=== PATIENT | male | born 1945 | race Caucasian/White ===

== ENCOUNTER 2016-10-18 10:19 | Emergency (ER) | payer OTHER, BC ==
[~2016-10-18] VITALS: Ht 175.3 cm; Wt 121.8 kg
[~2016-10-18 10:19] MED LIST: ALBUTEROL SULF8.5 GM IH; ASPIRIN325 MG PO; ATORVASTATIN CA20 MG PO; CARBAMAZEPINE100 MG PO; CARVEDILOL12.5 MG PO; GLIMEPIRIDE1 MG PO; GLIMEPIRIDE2 MG PO; HUMULIN N100 UNITS/ SC; HUMULIN R100 UNITS/ SC; LEVOTHYROXINE125 MCG PO; LO-DOSE ASPIRIN81 M1 PO; LOSARTAN-HCTZ1 EAC1 PO; METFORMIN HCL1000 MG PO; NOVOLOG PE100 UNITS/ SC; OMEPRAZOLE20 MG PO; TAMSULOSIN HCL0.4 MG PO
[2016-10-18 10:40] LABS: POINT-OF-CARE METER ID UU14100415
[2016-10-18 10:53] LABS: BASOPHIL COUNT 0.1 K/uL (0-0.1); EOSINOPHIL (%) 4.4 % (0-5); EOSINOPHIL COUNT 0.4 K/uL (0-0.3); HEMATOCRIT 42.2 % (38.0-50.0); IMMATURE GRANULOCYTE (%) 0.2 % (0.0-0.7); IMMATURE GRANULOCYTE COUNT 0.2 K/uL; LYMPHOCYTE COUNT 2.3 K/uL (1.0-2.8); MCH 28.9 PG (29.0-34.0); MCHC 33.9 G/DL (30.0-36.0); MCV 85.3 FL (86-99); MEAN PLAT.VOLUME 11.9 uM^3 (9.0-12.4); MONOCYTE (%) 8.7 % (3-12); MONOCYTE COUNT 0.9 K/uL (0-0.8); NEUTROPHIL (%) 62.8 % (45-76); NEUTROPHIL COUNT 6.1 K/uL (1.8-6.4); PLATELET COUNT 243 K/uL (156-360); RBC DIS.WIDTH-CV 13.9 % (11.8-14.6); RBC DIS.WIDTH-SD 42.9 % (39-53); RED BLOOD COUNT 4.95 M/uL (4.00-5.50); WHITE BLOOD COUNT 9.8 K/uL (4.1-10.2)
[2016-10-18 11:11] LABS: POINT-OF-CARE METER ID UU14100415
[2016-10-18 12:14] LABS: CHLORIDE 106 mEq/L (99-109); POTASSIUM 4.4 mEq/L (3.7-5.4); SODIUM 142 mEq/L (136-147)
[2016-10-18 12:15] LABS: GLUCOSE 125 mg/dL (70-99)
[2016-10-18 12:17] LABS: ANION GAP 10 MEQ/L (2-14)
[2016-10-18 12:19] LABS: GFR ESTIMATE (CALCULATED) > 59 mL/min/
[2016-10-18 12:20] LABS: UREA NITROGEN (BUN) 21 mg/dL (9-23)
[2016-10-18 12:57] LABS: POINT-OF-CARE METER ID UU14100415
[2016-10-18 13:57] LABS: POINT-OF-CARE METER ID UU13113702
[2016-10-18 14:19] VITALS: BP 175/98
== END 2016-10-18 14:34 | disposition home or self-care (01) ==
LOC: EME → EDBD 10:19 → EME 10:19
PROVIDERS: Emergency Medicine
DX: E11.649 Type 2 diabetes mellitus with hypoglycemia without coma (principal); E78.5 Hyperlipidemia, unspecified; I10 Essential (primary) hypertension; E03.9 Hypothyroidism, unspecified; Z79.4 Long term (current) use of insulin; Z88.2 Allergy status to sulfonamides; Z88.6 Allergy status to analgesic agent
CPT/HCPCS: 80048; 81003; 82948; 85025; 93005; 99281; 99285

== ENCOUNTER 2018-04-03 00:05 | Inpatient (IN) | payer OTHER, MEDICARE ==
[~2018-04-03] VITALS: Ht 177.8 cm; Wt 117.0 kg
[2018-04-03 00:40] LABS: HEMATOCRIT 39.4 % (38.0-50.0); HEMOGLOBIN 13.6 G/DL (12.5-16.6); MCH 30.1 PG (29.0-34.0); MCHC 34.5 G/DL (30.0-36.0); MCV 87.2 FL (86-99); PLATELET COUNT 180 K/uL (156-360); RBC DIS.WIDTH-CV 13.3 % (11.8-14.6); RBC DIS.WIDTH-SD 42.4 % (39-53); RED BLOOD COUNT 4.52 M/uL (4.00-5.50); WHITE BLOOD COUNT 7.9 K/uL (4.1-10.2)
[2018-04-03 00:46] LABS: CHLORIDE 108 mEq/L (99-109); POTASSIUM 3.3 mEq/L (3.7-5.4); SODIUM 144 mEq/L (136-147)
[2018-04-03 00:48] LABS: GLUCOSE 77 mg/dL (70-99)
[2018-04-03 00:52] LABS: CREATININE 1.6 mg/dL (0.6-1.3); GFR ESTIMATE (CALCULATED) 45 mL/min/ (58.99-99999)
[2018-04-03 00:53] LABS: UREA NITROGEN (BUN) 28 mg/dL (9-23)
[2018-04-03 00:59] LABS: TROP-I INTERPRETATION NEGATIVE; TROPONIN-I 0.01 ng/mL (0.0-0.30)
[2018-04-03 01:26] LABS: ALBUMIN 3.7 g/dL (3.2-4.8)
[2018-04-03 01:29] LABS: TOTAL PROTEIN 7.2 g/dL (6.4-8.3)
[2018-04-03 01:31] LABS: TOTAL BILIRUBIN 1.5 mg/dL (0.0-1.0)
[2018-04-03 01:32] LABS: ALKALINE PHOSPHATASE 86 IU/L (3-129)
[2018-04-03 01:34] LABS: AST (GOT) 16 IU/L (2-34); DIRECT BILIRUBIN 0.6 mg/dL (0.0-0.3)
[2018-04-03 01:35] LABS: ALT (GPT) 15 IU/L (3-49); LIPASE 14 U/L (1.0-51.0)
[2018-04-03 03:05] LABS: APPEARANCE CLEAR ((CLEAR)); BILIRUBIN NEGATIVE; BLOOD SMALL; COLOR YELLOW ((YELLOW)); GLUCOSE (STRIP) 50; KETONES NEGATIVE; LEUKOCYTES MODERATE; NITRITE NEGATIVE; PROTEIN (STRIP) 30; SPECIFIC GRAVITY 1.023 (1.000-1.030)
[2018-04-03 03:20] LABS: BACTERIA NONE SEEN /HPF; EPITHELIAL CELLS RARE /HPF; MUCUS TRACE /LPF; RED BLOOD CELLS 0-5 /HPF (0-5); UCUL ADDED? YES
[2018-04-03 07:55] VITALS: BP 194/88
[2018-04-03 08:31] LABS: HEMOGLOBIN 14.6 G/DL (12.5-16.6); MCH 29.9 PG (29.0-34.0); MCHC 33.2 G/DL (30.0-36.0); PLATELET COUNT 154 K/uL (156-360); RBC DIS.WIDTH-CV 13.2 % (11.8-14.6); RBC DIS.WIDTH-SD 43.7 % (39-53); RED BLOOD COUNT 4.89 M/uL (4.00-5.50); WHITE BLOOD COUNT 11.3 K/uL (4.1-10.2)
[2018-04-03 08:35] LABS: ALBUMIN 3.8 G/DL (3.2-4.8); CHLORIDE 102 MEQ/L (99-109); POTASSIUM 3.5 MEQ/L (3.7-5.4); SODIUM 141 MEQ/L (136-147); TOTAL BILIRUBIN 1.5 MG/DL (0.0-1.0)
[2018-04-03 08:41] LABS: ALKALINE PHOSPHATASE 81 IU/L (3-129); ALT (GPT) 18 IU/L (3-49); AST (GOT) 23 IU/L (2-34); CREATININE 1.2 MG/DL (0.6-1.3); GFR ESTIMATE (CALCULATED) > 59 mL/min/ (58.99-99999); TOTAL PROTEIN 7.2 G/DL (6.4-8.3); UREA NITROGEN (BUN) 25 mg/dL (9-23)
[2018-04-03 08:45] LABS: TROP-I INTERPRETATION NEGATIVE; TROPONIN-I 0.01 ng/mL (0.0-0.30)
[2018-04-03 08:51] LABS: GLUCOSE 98 mg/dL (70-99)
[2018-04-03] MEDS ORDERED: METFORMIN HCL500 M1 PO (08:52)
[2018-04-03] MEDS ORDERED: LOSARTAN-HCTZ1 EAC1 PO (08:52)
[2018-04-03 11:40] VITALS: BP 162/77
[2018-04-03 14:19] LABS: TROP-I INTERPRETATION NEGATIVE; TROPONIN-I 0.02 ng/mL (0.0-0.30)
[2018-04-03 16:14] VITALS: BP 158/72
[2018-04-03 19:20] VITALS: BP 170/79
[2018-04-03 23:52] VITALS: BP 179/74
[2018-04-04 03:35] VITALS: BP 131/61
[2018-04-04 05:55] LABS: HEMATOCRIT 39.5 % (38.0-50.0); HEMOGLOBIN 13.2 G/DL (12.5-16.6); MCH 29.9 PG (29.0-34.0); MCHC 33.4 G/DL (30.0-36.0); MCV 89.4 FL (86-99); PLATELET COUNT 157 K/uL (156-360); RBC DIS.WIDTH-CV 13.6 % (11.8-14.6); RBC DIS.WIDTH-SD 44.6 % (39-53); RED BLOOD COUNT 4.42 M/uL (4.00-5.50); WHITE BLOOD COUNT 11.2 K/uL (4.1-10.2)
[2018-04-04 06:39] LABS: CHLORIDE 101 MEQ/L (99-109); CREATININE 1.2 MG/DL (0.6-1.3); GFR ESTIMATE (CALCULATED) > 59 mL/min/ (58.99-99999); SODIUM 138 MEQ/L (136-147); UREA NITROGEN (BUN) 19 mg/dL (9-23)
[2018-04-04 06:44] LABS: GLUCOSE 313 mg/dL (70-99)
[2018-04-04 06:45] LABS: POTASSIUM 4.3 MEQ/L (3.7-5.4)
[2018-04-04 07:14] VITALS: BP 169/55
[2018-04-04 16:37] VITALS: BP 175/69
[2018-04-05 00:13] VITALS: BP 157/71
[2018-04-05 05:35] LABS: HEMATOCRIT 37.5 % (38.0-50.0); HEMOGLOBIN 12.7 G/DL (12.5-16.6); MCH 29.9 PG (29.0-34.0); MCHC 33.9 G/DL (30.0-36.0); MCV 88.2 FL (86-99); PLATELET COUNT 153 K/uL (156-360); RBC DIS.WIDTH-CV 13.3 % (11.8-14.6); RBC DIS.WIDTH-SD 43.7 % (39-53); RED BLOOD COUNT 4.25 M/uL (4.00-5.50); WHITE BLOOD COUNT 10.5 K/uL (4.1-10.2)
[2018-04-05 06:09] LABS: ALKALINE PHOSPHATASE 70 IU/L (3-129); ALT (GPT) 12 IU/L (3-49); AST (GOT) 13 IU/L (2-34); CHLORIDE 100 MEQ/L (99-109); CREATININE 1.2 MG/DL (0.6-1.3); DIRECT BILIRUBIN 0.5 mg/dL (0.0-0.3); GFR ESTIMATE (CALCULATED) > 59 mL/min/ (58.99-99999); GLUCOSE 208 mg/dL (70-99); LIPASE 5 U/L (1.0-51.0); POTASSIUM 3.7 MEQ/L (3.7-5.4); SODIUM 136 MEQ/L (136-147); UREA NITROGEN (BUN) 17 mg/dL (9-23)
[2018-04-05 06:12] LABS: TOTAL PROTEIN 5.6 G/DL (6.4-8.3)
[2018-04-05 07:46] VITALS: BP 167/74
[2018-04-05 15:28] VITALS: BP 162/81
[2018-04-05 23:24] VITALS: BP 167/78
[2018-04-06 07:27] VITALS: BP 156/82
[2018-04-06 09:51] LABS: BASOPHIL (%) 0.7 % (0-1); BASOPHIL COUNT 0.1 K/uL (0-0.1); EOSINOPHIL (%) 7.6 % (0-5); EOSINOPHIL COUNT 0.6 K/uL (0-0.3); HEMATOCRIT 39.8 % (38.0-50.0); HEMOGLOBIN 13.4 G/DL (12.5-16.6); IMMATURE GRANULOCYTE (%) 0.5 % (0.0-0.7); LYMPHOCYTE (%) 14.3 % (15-42); LYMPHOCYTE COUNT 1.1 K/uL (1.0-2.8); MCH 29.8 PG (29.0-34.0); MCHC 33.7 G/DL (30.0-36.0); MCV 88.4 FL (86-99); MONOCYTE (%) 6.7 % (3-12); MONOCYTE COUNT 0.5 K/uL (0-0.8); NEUTROPHIL (%) 70.2 % (45-76); NEUTROPHIL COUNT 5.2 K/uL (1.8-6.4); RBC DIS.WIDTH-CV 13.5 % (11.8-14.6); WHITE BLOOD COUNT 7.3 K/uL (4.1-10.2)
[2018-04-06 09:56] LABS: PLATELET COUNT 201 K/uL (156-360)
[2018-04-06 10:21] LABS: ALKALINE PHOSPHATASE 80 IU/L (3-129); CHLORIDE 101 MEQ/L (99-109); CREATININE 1.1 MG/DL (0.6-1.3); GFR ESTIMATE (CALCULATED) > 59 mL/min/ (58.99-99999); GLUCOSE 176 mg/dL (70-99); LIPASE 6 U/L (1.0-51.0); POTASSIUM 3.8 MEQ/L (3.7-5.4); SODIUM 136 MEQ/L (136-147); UREA NITROGEN (BUN) 14 mg/dL (9-23)
[2018-04-06 10:22] LABS: ALT (GPT) 24 IU/L (3-49); AST (GOT) 29 IU/L (2-34); TOTAL BILIRUBIN 1.5 MG/DL (0.0-1.0)
[2018-04-06 12:36] VITALS: BP 162/82
[2018-04-07 00:03] VITALS: BP 157/71
[2018-04-07 07:45] VITALS: BP 155/81
[2018-04-07] MEDS ORDERED: HYDROCODON-ACE1 EAC7 PO (08:31)
== END 2018-04-07 09:58 | disposition home or self-care (01) | DRG 418 ==
LOC: EME 00:05 → EDOF 05:45 → 5SOUTH 05:45
PROVIDERS: Emergency Medicine; Family Medicine; Internal Medicine; Physician Assistant Medical
DX: K80.00 Calculus of gallbladder with acute cholecystitis without obstruction (principal); N17.9 Acute kidney failure, unspecified; E11.65 Type 2 diabetes mellitus with hyperglycemia; K29.60 Other gastritis without bleeding; I10 Essential (primary) hypertension; E03.9 Hypothyroidism, unspecified; E78.5 Hyperlipidemia, unspecified; K21.9 Gastro-esophageal reflux disease without esophagitis; R82.99 Other abnormal findings in urine; N40.0 Benign prostatic hyperplasia without lower urinary tract symptoms; E66.9 Obesity, unspecified; Z68.37 Body mass index [BMI] 37.0-37.9, adult; K43.2 Incisional hernia without obstruction or gangrene; Z86.010 Personal history of colon polyps; Z87.891 Personal history of nicotine dependence; Z79.4 Long term (current) use of insulin; Z79.82 Long term (current) use of aspirin; Z80.0 Family history of malignant neoplasm of digestive organs
CPT/HCPCS: 71046; 74019; 74176; 76705; 78227; 78582; 80048; 80053; 80076; 81003; 82948; 83605; 83690; 84484; 85025; 85027; 85379; 87040; 87086; 88304; 88305; 88342 TC; 93005; 99281; 99284; A9537; A9540; A9567; J0131; J0330; J0696; J1170; J1644; J1815; J2270; J2405; J2710; J2805; J3010; J7030; J7643; S0028; S0074